=== PATIENT | female | born 1980 | race Caucasian/White ===

== ENCOUNTER → 2017-06-16 | Outpatient (CLI) | payer OTHER ==
[~2017-06-16] MED LIST: AMBIEN 5 MG TABL5 M1 PO; BACTRIM DS TAB1 EACH PO; LORATIDINE 10 M10 M1 PO; NEURONTIN600 MG PO; PERCOCET 5-3251 EACH; PERCOCET 5-3251 EACH PO; PRISTIQ50 MG; SEROQUEL300 MG PO; VALTREX; VITAMIN B-12500 MCG PO; VITAMIN D1000 UNI1 PO; WELLBUTRIN SR150 MG; ZOFRAN 4 MG ORAL4 MG PO; [UNRECOGNIZED DRUG - OTHER]
== END ==
LOC: M.RAD 10:18
DX: N60.02 Solitary cyst of left breast (principal)

== ENCOUNTER → 2017-07-07 | Outpatient (CLI) | payer OTHER | LOC: M.ULTRA 07:16 | DX: R10.13 Epigastric pain (principal); R10.11 Right upper quadrant pain; R11.2 Nausea with vomiting, unspecified ==

== ENCOUNTER 2018-08-03 13:43 | Emergency (ER) | payer OTHER ==
[~2018-08-03] VITALS: Ht 162.6 cm; Wt 45.4 kg
[2018-08-03] MEDS ORDERED: OXYCONTIN10 M1 PO (13:47)
[2018-08-03] MEDS ORDERED: IBUPROFEN 400400 M2 PO (13:47)
[2018-08-03 14:35] LABS: HEMATOCRIT 37.5 % (37.0-47.0); HEMOGLOBIN 12.4 gm/dL (12.0-15.0); MCH 27.3 pg (26.0-34.0); MCHC 33.1 g/dL (28.0-37.0); MCV 82.4 fL (80.0-100.0); MPV 7.8 fl. (7.2-11.1); RBC 4.55 mil/uL (4.20-5.00); RDW-CV 15.6 % (10.5-14.5); WBC 8.6 thou/uL (4.0-11.0)
[2018-08-03 14:42] LABS: ANION GAP < 0 mmol/L (7-16); BUN 16 mg/dL (7-18); CALCIUM 8.3 mg/dL (8.5-10.1); CHLORIDE 100 mmol/L (98-107); CO2 29 mmol/L (21-32); CREATININE 0.8 mg/dL (0.6-1.3); GLUCOSE 75 mg/dL (70-99); POTASSIUM 3.3 mmol/L (3.5-5.1); SODIUM 125 mmol/L (136-145)
[2018-08-03 14:46] LABS: ALBUMIN 3.6 g/dL (3.4-5.0); SGOT 13 U/L (15-37); SGPT 14 U/L (30-65)
[2018-08-03 14:51] LABS: URINE BLOOD 2+ (Negative); URINE CLARITY CLEAR; URINE COLOR YELLOW; URINE GLUCOSE-RANDOM NEGATIVE (Negative); URINE KETONES 2+ (Negative); URINE LEUKOCYTES NEGATIVE (Negative); URINE NITRITE NEGATIVE (Negative); URINE PROTEIN TRACE (Negative); URINE SPECIFIC GRAVITY >= 1.030 (1.005-1.030); URINE UROBILINOGEN 0.2 E.U./dl (0.2-1.0)
[2018-08-03 14:53] LABS: ACETAMINOPHEN 7 ug/mL (10-30); ALCOHOL < 10 mg/dL (<10); SALICYLATE < 2.8 mg/dL (2.8-20.0)
[2018-08-03 14:55] LABS: ICTOTEST (BILI CONFIRMATORY) Negative (Negative); URINE BILIRUBIN 1+ (Negative)
[2018-08-03 14:59] LABS: ALKALINE PHOSPHATASE 27 U/L (46-116); TOTAL BILIRUBIN 0.6 mg/dL (<0.1-1.0); TOTAL PROTEIN 6.7 g/dL (6.4-8.2)
[2018-08-03 15:01] LABS: AMP/METHAMP Negative (Negative); BARBITURATES Negative (Negative); BENZODIAZEPINES POSITIVE (Negative); COCAINE Negative (Negative); METHADONE Negative (Negative); OPIATES POSITIVE (Negative); PCP Negative (Negative); THC Negative (Negative)
[2018-08-03 15:12] LABS: SQUAMOUS >10 Many /LPF (0-3)
[2018-08-03 15:13] LABS: URINE WBC 0-5 Rare /HPF (0-5)
[2018-08-03 15:15] LABS: CRYSTALS None Seen /LPF (None Seen); URINE RBC 0-2 Rare /HPF (0-2)
[2018-08-03 15:18] LABS: HYALINE CASTS 4-10 Moderate /LPF (None Seen)
[2018-08-03 15:20] LABS: MUCUS >6 Heavy strn/LPF (None Seen)
[2018-08-03 22:45] LABS: CALCIUM 7.6 mg/dL (8.5-10.1); CREATININE 0.7 mg/dL (0.6-1.3); POTASSIUM 3.5 mmol/L (3.5-5.1)
[2018-08-04 15:07] VITALS: BP 125/72
== END 2018-08-04 15:10 | disposition home or self-care (01) ==
LOC: M.ERS 13:43
PROVIDERS: Family Medicine; Personal Emergency Response Attendant
DX: F41.9 Anxiety disorder, unspecified (principal); F32.9 Major depressive disorder, single episode, unspecified; R45.851 Suicidal ideations; Z90.710 Acquired absence of both cervix and uterus

== ENCOUNTER 2019-08-21 14:39 | Emergency (ER) | payer OTHER ==
[~2019-08-21] VITALS: Ht 162.6 cm; Wt 54.4 kg
[~2019-08-21 14:39] MED LIST changes: +IBUPROFEN 400400 M2 PO; +OXYCONTIN10 M1 PO
[2019-08-21] MEDS ORDERED: BIRTH CONTROL (14:52)
[2019-08-21] MEDS ORDERED: OMEPRAZOLE 20 M20 M1 PO (14:52)
[2019-08-21] MEDS ORDERED: SUPER THERAVIT1 EACH PO (14:52)
[2019-08-21 15:03] LABS: ABSOLUTE BASOPHILS 0.1 thou/uL (0.0-0.2); ABSOLUTE EOSINOPHILS 0.1 thou/uL (0.0-0.7); ABSOLUTE LYMPHOCYTES 2.4 thou/uL (0.8-5.3); ABSOLUTE MONOCYTES 0.6 thou/uL (0.0-1.2); ABSOLUTE NEUTROPHILS 5.4 thou/uL (1.6-8.1); BASOPHILS 0.9 %; EOSINOPHILS 1.6 %; HEMATOCRIT 42.1 % (37.0-47.0); HEMOGLOBIN 14.1 gm/dL (12.0-15.0); LYMPHOCYTES 27.8 %; MCH 28.4 pg (26.0-34.0); MCHC 33.6 g/dL (28.0-37.0); MCV 84.6 fL (80.0-100.0); MONOCYTES 7.1 %; MPV 8.4 fl. (7.2-11.1); NUCLEATED RBCS 0 /100WBC; PLATELET COUNT* 302 thou/uL (150-400); POLYS 62.6 %; RBC 4.98 mil/uL (4.20-5.00); RDW-CV 14.6 % (10.5-14.5); WBC 8.6 thou/uL (4.0-11.0)
[2019-08-21 15:17] LABS: CALCIUM 8.6 mg/dL (8.5-10.1); CREATININE 0.8 mg/dL (0.6-1.3); POTASSIUM 3.3 mmol/L (3.5-5.1)
[2019-08-21 15:22] LABS: ALBUMIN 3.8 g/dL (3.4-5.0); TOTAL BILIRUBIN 0.3 mg/dL (<0.1-1.0); TOTAL PROTEIN 7.7 g/dL (6.4-8.2)
[2019-08-21 16:22] LABS: URINE BILIRUBIN NEGATIVE (Negative); URINE BLOOD 3+ (Negative); URINE CLARITY SL CLOUDY; URINE COLOR YELLOW; URINE GLUCOSE-RANDOM NEGATIVE (Negative); URINE KETONES NEGATIVE (Negative); URINE LEUKOCYTES-REFLEX TRACE (Negative); URINE NITRITE-REFLEX NEGATIVE (Negative); URINE PROTEIN NEGATIVE (Negative); URINE SPECIFIC GRAVITY 1.015 (1.005-1.030); URINE UROBILINOGEN 0.2 E.U./dl (0.2-1.0)
[2019-08-21 16:35] LABS: BACTERIA-REFLEX 1-9 Few /HPF (None Seen); CASTS None Seen /LPF (None Seen); CRYSTALS None Seen /LPF (None Seen); SQUAMOUS 0-3 Few /LPF (0-3); URINE WBC-REFLEX 0-5 Rare /HPF (0-5)
[2019-08-21 16:51] LABS: AMP/METHAMP Negative (Negative); BARBITURATES Negative (Negative); BENZODIAZEPINES Negative (Negative); COCAINE Negative (Negative); METHADONE Negative (Negative); OPIATES POSITIVE (Negative); PCP Negative (Negative); THC Negative (Negative)
--- NOTE | 2019-08-21 16:54 | EKG ---
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 08/21/19 1653 1445 1445 David Wilson MD, [facility] /EPI
[2019-08-21] MEDS ORDERED: BACTRIM DS TAB1 EAC1 PO (17:56)
[2019-08-21] MEDS ORDERED: ONDANSETRON ODT4 MG PO (17:56)
[2019-08-21] MEDS ORDERED: NORCO 5-325 TA1 EAC1 PO (17:56)
[2019-08-21 17:58] VITALS: BP 137/76
== END 2019-08-21 18:00 | disposition home or self-care (01) ==
LOC: M.ERS 14:39
PROVIDERS: Physician Assistant
DX: I49.3 Ventricular premature depolarization (principal); N39.0 Urinary tract infection, site not specified; Z90.710 Acquired absence of both cervix and uterus; Z79.899 Other long term (current) drug therapy

== ENCOUNTER 2019-11-12 01:32 | Emergency (ER) | payer OTHER ==
[~2019-11-12] VITALS: Ht 160 cm; Wt 54.9 kg
[~2019-11-12 01:32] MED LIST changes: +BACTRIM DS TAB1 EAC1 PO; +BIRTH CONTROL; +NORCO 5-325 TA1 EAC1 PO; +OMEPRAZOLE 20 M20 M1 PO; +ONDANSETRON ODT4 MG PO; +SUPER THERAVIT1 EACH PO
[2019-11-12] MEDS ORDERED: SUBOXONE 8 MG-1 EAC3 SUBLING (01:42)
[2019-11-12 02:07] LABS: ABSOLUTE BASOPHILS 0.1 thou/uL (0.0-0.2); ABSOLUTE EOSINOPHILS 0.2 thou/uL (0.0-0.7); ABSOLUTE MONOCYTES 0.8 thou/uL (0.0-1.2); BASOPHILS 0.8 %; EOSINOPHILS 1.7 %; HEMATOCRIT 40.5 % (37.0-47.0); HEMOGLOBIN 13.5 gm/dL (12.0-15.0); LYMPHOCYTES 32.7 %; MCH 28.8 pg (26.0-34.0); MCHC 33.2 g/dL (28.0-37.0); MCV 86.7 fL (80.0-100.0); MONOCYTES 9.4 %; MPV 8.9 fl. (7.2-11.1); NUCLEATED RBCS 0 /100WBC; PLATELET COUNT* 277 thou/uL (150-400); POLYS 55.4 %; RBC 4.68 mil/uL (4.20-5.00); RDW-CV 13.8 % (10.5-14.5); WBC 9.1 thou/uL (4.0-11.0)
[2019-11-12 02:12] LABS: CALCIUM 8.5 mg/dL (8.5-10.1); CREATININE 0.9 mg/dL (0.6-1.3); POTASSIUM 3.8 mmol/L (3.5-5.1)
[2019-11-12 02:17] LABS: APTT 24.9 Seconds (25.0-31.3); INR 1.1; PROTIME 10.8 Seconds (9.20-11.50)
[2019-11-12 02:38] LABS: ALBUMIN 3.7 g/dL (3.4-5.0); CK-MB MASS 0.6 ng/mL (<0.5-3.6); MAGNESIUM 2.1 mg/dL (1.8-2.4); TOTAL BILIRUBIN 0.3 mg/dL (<0.1-1.0); TOTAL PROTEIN 7.4 g/dL (6.4-8.2)
[2019-11-12] MEDS ORDERED: ZOFRAN ODT4 MG SUBLING (02:45)
[2019-11-12 02:51] VITALS: BP 165/101
--- NOTE | 2019-11-12 16:25 | EKG ---
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[place] : 1980 Requested By: Jeremie Sharma Order Number: [id number] MD: Jeff Landeros Measurements Intervals [place] Rate: 80 P: 71 [place]: 123 QRS: 50 QRSD: 90 T: 59 QT: 392 QTc: 453 Interpretive Statements Sinus rhythm Ventricular bigeminy Left atrial enlargement Compared to ECG 08/21/2019 14:45:05 Sinus tachycardia no longer present ST (T wave) deviation no longer present Electronically Signed On 11-12-2019 16:23:12 CDT by Jeff Landeros [email or web address] <ELECTRONICALLY SIGNED> By: Jeff Landeros MD, [facility] 11/12/19 1623 0134 0134 Jeff Landeros MD, [facility] /EPI
== END 2019-11-12 02:52 | disposition home or self-care (01) ==
LOC: M.ERS 01:32
PROVIDERS: Family Medicine
DX: F41.0 Panic disorder [episodic paroxysmal anxiety] (principal); Z88.8 Allergy status to other drugs, medicaments and biological substances; Z90.710 Acquired absence of both cervix and uterus